=== PATIENT | female | born 1970 | race Caucasian/White ===

== ENCOUNTER 2022-09-08 18:28 | Emergency (ER) | payer BC ==
[~2022-09-08] VITALS: Ht 157.5 cm; Wt 59.0 kg
--- NOTE | 2022-09-08 19:10 | NUR ---
Endorsed to Iram MERCHANT.
[2022-09-08] MEDS ORDERED: CARI350T PO (19:15)
[2022-09-08] MEDS ORDERED: CARISOPRODOL 350 MG TABLET PO ONE (19:30)
--- NOTE | 2022-09-08 19:40 | NUR ---
Taken downstairs for CT scan.
[2022-09-08] MEDS ORDERED: CARISOPRODOL 350 MG TABLET ONE (19:47)
--- NOTE | 2022-09-08 19:49 | NUR ---
Back from CT scan.
--- NOTE | 2022-09-08 20:44 | NUR ---
Patient discharged to home in stable condition. A/O x 4. NAD noted Ambulatory with a steady gait. Written and verbal after care instructions given. Patient verbalizes understanding of instructions. Stressed follow up or return to ER for worsening s/s.
[2022-09-08 21:15] VITALS: BP 121/69
== END 2022-09-08 20:44 | disposition home or self-care (01) ==
LOC: ER 19:03
DX: R42 Dizziness and giddiness (principal); S20.212A Contusion of left front wall of thorax, initial encounter; Y04.0XXA Assault by unarmed brawl or fight, initial encounter; Y92.89 Other specified places as the place of occurrence of the external cause; U07.1 COVID-19; G89.29 Other chronic pain; M54.9 Dorsalgia, unspecified; Z88.6 Allergy status to analgesic agent; Z88.0 Allergy status to penicillin; Z88.2 Allergy status to sulfonamides; E03.9 Hypothyroidism, unspecified; Z79.899 Other long term (current) drug therapy
CPT/HCPCS: 70450; 71045; A4663

== ENCOUNTER 2022-11-11 18:34 | Emergency (ER) | payer BC ==
[~2022-11-11] VITALS: Ht 154.9 cm; Wt 73.5 kg
[~2022-11-11 18:34] MED LIST: CARI350T PO
--- NOTE | 2022-11-11 19:09 | NUR ---
Dr [email or web address], medical screening exam in progress
[2022-11-11] MEDS ORDERED: KETO10TA2 PO (19:31)
[2022-11-11] MEDS ORDERED: ONDA-104 PO (19:31)
--- NOTE | 2022-11-11 20:26 | NUR ---
Patient discharged to home in stable condition. Written and verbal after care instructions given. Patient verbalizes understanding of instructions. Stressed follow up or return to ER for worsening s/s.
[2022-11-11 20:28] VITALS: BP 136/82
== END 2022-11-11 20:10 | disposition home or self-care (01) ==
LOC: ER 18:34
DX: S09.90XA Unspecified injury of head, initial encounter (principal); S50.02XA Contusion of left elbow, initial encounter; W03.XXXA Other fall on same level due to collision with another person, initial encounter; Y92.89 Other specified places as the place of occurrence of the external cause; R00.0 Tachycardia, unspecified; Z88.6 Allergy status to analgesic agent; Z88.5 Allergy status to narcotic agent; Z88.0 Allergy status to penicillin; E03.9 Hypothyroidism, unspecified; G89.29 Other chronic pain; M54.9 Dorsalgia, unspecified; F32.A Depression, unspecified
CPT/HCPCS: A4663

== ENCOUNTER 2024-07-20 11:58 | Emergency (ER) | payer BC ==
[~2024-07-20] VITALS: Ht 154.9 cm; Wt 83.9 kg
[~2024-07-20 11:58] MED LIST changes: +KETO10TA2 PO; +ONDA-104 PO
[2024-07-20] MEDS ORDERED: GABA100C PO (12:32)
[2024-07-20 12:57] VITALS: BP 143/84; O2SAT 98
== END 2024-07-20 12:58 | disposition home or self-care (01) ==
LOC: ER 12:08
DX: S63.592A Other specified sprain of left wrist, initial encounter (principal); E03.9 Hypothyroidism, unspecified; F32.A Depression, unspecified; Z79.899 Other long term (current) drug therapy; Z88.0 Allergy status to penicillin; Z88.2 Allergy status to sulfonamides; Z88.5 Allergy status to narcotic agent; W54.1XXA Struck by dog, initial encounter; Y93.89 Activity, other specified; Y92.89 Other specified places as the place of occurrence of the external cause; Y99.8 Other external cause status
CPT/HCPCS: 73110; A4606; A4663